=== PATIENT | female | born 1935 | race Caucasian/White ===

== ENCOUNTER 2020-04-09 06:55 | Day surgery (SDC) | payer OTHER, MEDICAID, SELFPAY ==
[~2020-04-09] VITALS: Ht 152.4 cm; Wt 70.3 kg
[2020-04-09] MEDS ORDERED: SIMETHICONE 40 MG/0.6 ML ML ONE (08:15)
[2020-04-09] MEDS ORDERED: MEPERIDINE HCL/PF 100 MG/ML AMP ONE (08:15)
[2020-04-09] MEDS ORDERED: MIDAZOLAM HCL 5 MG/5 ML VIAL ONE (08:16)
[2020-04-09 09:56] VITALS: BP_SYST 132
== END 2020-04-09 09:10 | disposition home or self-care (01) ==
LOC: SMU 06:55 → SDS 06:55
PROVIDERS: ATTEND Internal Medicine Gastroenterology
DX: R10.9 Unspecified abdominal pain (principal); K29.70 Gastritis, unspecified, without bleeding; E11.9 Type 2 diabetes mellitus without complications; I10 Essential (primary) hypertension; Z79.84 Long term (current) use of oral hypoglycemic drugs; Z79.899 Other long term (current) drug therapy; Z20.828 Contact with and (suspected) exposure to other viral communicable diseases
CPT/HCPCS: 36415; 43239; 82962; 87081; 88305; 88312; 88313; 99152; G0378; J2175; J2250; U0003